=== PATIENT | male | born 1945 | race Two or more races ===

== ENCOUNTER 2020-04-26 10:45 | Inpatient (IN) | payer OTHER ==
[~2020-04-26] VITALS: Ht 172.7 cm; Wt 99.8 kg
[2020-04-30] MEDS ORDERED: PLAVIX75 MG PO (12:45)
[2020-04-30] MEDS ORDERED: TRADJENTA5 MG PO (12:45)
[2020-04-30] MEDS ORDERED: SYNTHROID75 MCG PO (12:45)
[2020-04-30] MEDS ORDERED: NORVASC5 MG PO (12:46)
[2020-04-30] MEDS ORDERED: GLIPIZIDE XL10 MG PO (12:46)
[2020-04-30] MEDS ORDERED: ZESTRIL20 MG PO (12:47)
[2020-04-30] MEDS ORDERED: GLUMETZA500 MG PO (12:47)
[2020-04-30] MEDS ORDERED: LIPITOR40 M1 PO (12:47)
[2020-04-30] MEDS ORDERED: RIVASTIGMINE4.5 MG PO (12:48)
[2020-04-30] MEDS ORDERED: FOLBIC PO (12:48)
[2020-05-03] MEDS ORDERED: FOLBIC TABLET1 EACH PO (14:22)
[2020-05-08] MEDS ORDERED: OXYC1TAB9 PO (13:43)
[2020-05-08] MEDS ORDERED: TAMS0.4C PO (13:43)
[2020-05-08] MEDS ORDERED: INTESTINEX680 M1 PO (13:44)
[2020-05-08] MEDS ORDERED: HYOSCYAMINE0.125 M1 SL (13:44)
== END 2020-05-08 16:21 | disposition home or self-care (01) | DRG 330 ==
LOC: SURH 05-03 10:45 → O/R 05-03 10:45 → SURH 05-03 11:45 → O/R 05-03 11:55 → SURH 05-03 11:55
PROVIDERS: ADMIT Surgery; ATTEND Surgery
PROC: 07TB4ZZ Resection of Mesenteric Lymphatic, Percutaneous Endoscopic Approach (ICD-10-PCS; 2020-05-03)
PROC: 0DTF4ZZ Resection of Right Large Intestine, Percutaneous Endoscopic Approach (ICD-10-PCS; principal; 2020-05-03 11:45)
PROC: 0T9B70Z Drainage of Bladder with Drainage Device, Via Natural or Artificial Opening (ICD-10-PCS; 2020-05-04)
PROC: 4A12X4Z Monitoring of Cardiac Electrical Activity, External Approach (ICD-10-PCS; 2020-05-04)
DX: D12.2 Benign neoplasm of ascending colon (principal); K56.7 Ileus, unspecified; R33.8 Other retention of urine; R59.0 Localized enlarged lymph nodes; E03.8 Other specified hypothyroidism; G47.33 Obstructive sleep apnea (adult) (pediatric); I11.9 Hypertensive heart disease without heart failure; E11.9 Type 2 diabetes mellitus without complications; Z79.4 Long term (current) use of insulin

== ENCOUNTER 2020-05-10 10:08 | Inpatient (IN) | payer OTHER ==
[~2020-05-10] VITALS: Ht 172.7 cm; Wt 99.8 kg
[~2020-05-10 10:08] MED LIST: FOLBIC PO; FOLBIC TABLET1 EACH PO; GLIPIZIDE XL10 MG PO; GLUMETZA500 MG PO; HYOSCYAMINE0.125 M1 SL; INTESTINEX680 M1 PO; LIPITOR40 M1 PO; NORVASC5 MG PO; OXYC1TAB9 PO; PLAVIX75 MG PO; RIVASTIGMINE4.5 MG PO; SYNTHROID75 MCG PO; TAMS0.4C PO; TRADJENTA5 MG PO; ZESTRIL20 MG PO
== END 2020-05-17 14:52 | disposition home or self-care (01) | DRG 388 ==
LOC: ER 10:08 → ICU-2 12:01 → ICU 05-13 02:54 → SURH 05-14 15:06
PROVIDERS: ADMIT Surgery; ATTEND Surgery
PROC: BB24ZZZ Computerized Tomography (CT Scan) of Bilateral Lungs (ICD-10-PCS; principal; 2020-05-10)
PROC: BW21ZZZ Computerized Tomography (CT Scan) of Abdomen and Pelvis (ICD-10-PCS; 2020-05-10)
PROC: 02HV33Z Insertion of Infusion Device into Superior Vena Cava, Percutaneous Approach (ICD-10-PCS; 2020-05-10)
PROC: 4A033R1 Measurement of Arterial Saturation, Peripheral, Percutaneous Approach (ICD-10-PCS; 2020-05-10)
PROC: 0DH67UZ Insertion of Feeding Device into Stomach, Via Natural or Artificial Opening (ICD-10-PCS; 2020-05-10)
PROC: 3E0G76Z Introduction of Nutritional Substance into Upper GI, Via Natural or Artificial Opening (ICD-10-PCS; 2020-05-10)
PROC: 3E0F7GC Introduction of Other Therapeutic Substance into Respiratory Tract, Via Natural or Artificial Opening (ICD-10-PCS; 2020-05-10)
PROC: B24BZZZ Ultrasonography of Heart with Aorta (ICD-10-PCS; 2020-05-11)
PROC: 4A12X4Z Monitoring of Cardiac Electrical Activity, External Approach (ICD-10-PCS; 2020-05-14)
DX: K56.600 Partial intestinal obstruction, unspecified as to cause (principal); A41.1 Sepsis due to other specified staphylococcus; J18.0 Bronchopneumonia, unspecified organism; N17.8 Other acute kidney failure; N39.0 Urinary tract infection, site not specified; J90 Pleural effusion, not elsewhere classified; J98.11 Atelectasis; E86.0 Dehydration; E87.8 Other disorders of electrolyte and fluid balance, not elsewhere classified; I95.9 Hypotension, unspecified; E11.65 Type 2 diabetes mellitus with hyperglycemia; E03.8 Other specified hypothyroidism; G47.33 Obstructive sleep apnea (adult) (pediatric); G30.0 Alzheimer's disease with early onset; D50.8 Other iron deficiency anemias; F02.80 Dementia in other diseases classified elsewhere, unspecified severity, without behavioral disturbance, psychotic disturbance, mood disturbance, and anxiety; E66.09 Other obesity due to excess calories; E11.22 Type 2 diabetes mellitus with diabetic chronic kidney disease; I08.0 Rheumatic disorders of both mitral and aortic valves; I12.9 Hypertensive chronic kidney disease with stage 1 through stage 4 chronic kidney disease, or unspecified chronic kidney disease; I35.2 Nonrheumatic aortic (valve) stenosis with insufficiency; R11.2 Nausea with vomiting, unspecified; R09.02 Hypoxemia; N18.2 Chronic kidney disease, stage 2 (mild); Z79.4 Long term (current) use of insulin; Z03.818 Encounter for observation for suspected exposure to other biological agents ruled out

== ENCOUNTER 2021-07-17 16:57 | Inpatient (IN) | payer OTHER ==
[~2021-07-17] VITALS: Ht 172.7 cm; Wt 93.4 kg
[2021-07-17] MEDS ORDERED: CRESTOR40 MG PO (17:15)
[2021-07-17] MEDS ORDERED: ELIQUIS5 MG PO (17:15)
[2021-07-23] MEDS ORDERED: INTEGRA F CAPS1 EACH PO (17:26)
[2021-07-23] MEDS ORDERED: HUMULIN 70100 UNIT/2 SUBCUTANEO (17:26)
[2021-07-23] MEDS ORDERED: INTESTINEX680 M1 PO (17:26)
[2021-07-23] MEDS ORDERED: SYNTHROID75 MCG PO (17:26)
[2021-07-23] MEDS ORDERED: TAMS0.4C PO (17:26)
[2021-07-23] MEDS ORDERED: XOPENEX0.63 MG/3 IH (17:26)
[2021-07-23] MEDS ORDERED: HYDRALAZINE HCL25 MG PO (17:26)
[2021-07-23] MEDS ORDERED: NORVASC5 MG PO (17:26)
[2021-07-23] MEDS ORDERED: RIVASTIGMINE4.5 MG PO (17:26)
[2021-07-23] MEDS ORDERED: Neurin-Sl Tablet Sl SL (17:26)
[2021-07-23] MEDS ORDERED: CRESTOR40 MG PO (17:26)
[2021-07-23] MEDS ORDERED: ELIQUIS2.5 MG PO (17:26)
== END 2021-07-23 18:02 | disposition home or self-care (01) | DRG 682 ==
LOC: ER 16:57 → MEDI 07-18 09:41
PROVIDERS: ADMIT Internal Medicine Geriatric Medicine; ATTEND Internal Medicine Geriatric Medicine
PROC: 3E0F7GC Introduction of Other Therapeutic Substance into Respiratory Tract, Via Natural or Artificial Opening (ICD-10-PCS; principal; 2021-07-18)
PROC: BW25ZZZ Computerized Tomography (CT Scan) of Chest, Abdomen and Pelvis (ICD-10-PCS; 2021-07-18)
PROC: 02HV33Z Insertion of Infusion Device into Superior Vena Cava, Percutaneous Approach (ICD-10-PCS; 2021-07-18)
PROC: 3E0F7SF Introduction of Other Gas into Respiratory Tract, Via Natural or Artificial Opening (ICD-10-PCS; 2021-07-18)
PROC: BT43ZZZ Ultrasonography of Bilateral Kidneys (ICD-10-PCS; 2021-07-18)
PROC: B24BZZZ Ultrasonography of Heart with Aorta (ICD-10-PCS; 2021-07-19)
DX: N17.8 Other acute kidney failure (principal); J18.8 Other pneumonia, unspecified organism; E87.2 Acidosis; J06.9 Acute upper respiratory infection, unspecified; I27.20 Pulmonary hypertension, unspecified; R09.02 Hypoxemia; I48.91 Unspecified atrial fibrillation; G30.8 Other Alzheimer's disease; F02.80 Dementia in other diseases classified elsewhere, unspecified severity, without behavioral disturbance, psychotic disturbance, mood disturbance, and anxiety; E78.00 Pure hypercholesterolemia, unspecified; Z20.822 Contact with and (suspected) exposure to COVID-19; Z95.2 Presence of prosthetic heart valve